=== PATIENT | female | born 1990 | race Caucasian/White ===

== ENCOUNTER 2019-03-13 11:18 | Emergency (ER) | payer OTHER ==
[2019-03-13 11:43] VITALS: BP 117/67; PULSE 80; RESP 18; TEMP 98.6
--- NOTE | 2019-03-13 11:56 | ED ---
General Adult HPI - General Chief complaint: Extremity Injury, Lower Stated complaint: Foot Injury Time Seen by Provider: 03/13/19 11:45 Source: patient Mode of arrival: ambulatory Limitations: no limitations - History of Present Illness Initial comments: Dictation was produced using [employer] dictation software. please excuse any grammatical, word or spelling errors. Chief Complaint: 28-year-old female presents with right foot pain. History of Present Illness: 28-year-old female she presents today with right foot pain. Patient was stepping off a ladder on Tuesday. She took a step down with her right foot and immediately felt pain. Patient decided come to the emergency department today because she was scared by a friend's and coming in saying that she would walk abnormally for the rest of her life. Patient states the pain is located to the right lateral forefoot. States that is painful when she walks. Denies any midfoot tenderness. No ankle pain. Denies any numbing stable and paresthesias. The ROS documented in this emergency department record has been reviewed and confirmed by me. Those systems with pertinent positive or negative responses have been documented in the HPI. All other systems are other negative and/or noncontributory. PHYSICAL EXAM: General Impression: Alert and oriented x3, not in acute distress HEENT: Normocephalic atraumatic, extra-ocular movements intact, pupils equal and reactive to light bilaterally, mucous membranes moist. Cardiovascular: Heart regular rate and rhythm, S1&S2 audible, no murmurs, rubs or gallops Chest: Lungs clear to auscultation bilaterally, no rhonchi, no wheeze, no rales Abdomen: Bowel sounds present, abdomen soft, non-tender, non-distended, no organomegaly Musculoskeletal: Pulses present and equal in all extremities, no peripheral edema Motor: no focal deficits noted Neurological: CN II-XII grossly intact, no focal motor or sensory deficits noted Skin: Intact with no visualized rashes Psych: Normal affect and mood Right foot: Tenderness to palpation over the fourth and fifth metatarsal heads. No right foot tenderness. ED course: 28-year-old female presents with right foot pain. On arrival are within acceptable limits.X-ray shows acute nondisplaced minimally comminuted fracture of the diaphysis of the fifth metatarsal. Patient placed in a posterior mold splint. Still to be nonweightbearing to the right lower extremity. Patient given referral to orthopedic surgery for outpatient management of symptoms. - Related Data Home Medications Medication Instructions Recorded Confirmed Acetaminophen [Tylenol] 650 mg PO TID PRN 03/13/19 03/13/19 Allergies Allergy/AdvReac Type Severity Reaction Status Date / Time No Known Allergies Allergy Verified 03/13/19 12:04 Review of Systems ROS Statement: Those systems with pertinent positive or pertinent negative responses have been documented in the HPI. ROS Other: All systems not noted in ROS Statement are negative. Past Medical History Past Medical History: Asthma History of Any Multi-Drug Resistant Organisms: None Reported Past Surgical History: Adenoidectomy, Tonsillectomy Past Anesthesia/Blood Transfusion Reactions: No Reported Reaction Past Psychological History: Depression Smoking Status: Current every day smoker Past Alcohol Use History: Occasional Past Drug Use History: None Reported - Past Family History Father Family Medical History: No Reported History General Exam Limitations: no limitations Course Vital Signs 03/13/19 11:40 Temperature 98.6 F Pulse Rate 80 Respiratory 18 Rate Blood Pressure 117/67 O2 Sat by Pulse 98 Oximetry Disposition Clinical Impression: Foot fracture, right Disposition: HOME SELF-CARE Condition: Good Instructions (If sedation given, give patient instructions): Foot Fracture in Adults (ED) Is patient prescribed a controlled substance at d/c from ED?: No Referrals: Al Noland MD [Medical Doctor] - 1-2 days Time of Disposition: 12:59
--- NOTE | 2019-03-13 12:38 | XR ---
EXAMINATION TYPE: XR foot complete RT DATE OF EXAM: 03/13/2019 CLINICAL HISTORY: Right foot pain after falling off of a ladder TECHNIQUE: Frontal, lateral, and oblique images of the right foot are obtained. COMPARISON: None FINDINGS: There is an obliquely oriented nondisplaced, very minimally comminuted there is a fracture of the distal diaphysis of the fifth metatarsal with overlying soft tissue swelling. No additional fr acture seen of the right foot. Osseous mineralization is within normal limits. No radiopaque foreign body. IMPRESSION: Acute nondisplaced very minimally comminuted fracture of the distal diaphysis of the fift h metatarsal on the right foot.
== END 2019-03-13 13:25 | disposition home or self-care (01) ==
LOC: EC 11:18
DX: S92.354A Nondisplaced fracture of fifth metatarsal bone, right foot, initial encounter for closed fracture (principal); F17.200 Nicotine dependence, unspecified, uncomplicated; W11.XXXA Fall on and from ladder, initial encounter; Y92.009 Unspecified place in unspecified non-institutional (private) residence as the place of occurrence of the external cause
CPT/HCPCS: 29515; 99283